=== PATIENT | female | born 1980 | race African-American/Black ===

== ENCOUNTER → 2018-08-30 | Outpatient (CLI) | payer OTHER ==
--- NOTE | 2018-08-30 15:01 | RADIOLOGY REPORT (SQ) ---
EXAM DESCRIPTION: CT FACIAL AREA WITH COMPLETED DATE/TIME: 08/30/2018 12:49 pm REASON FOR STUDY: PERIAPICAL ABSCESS WITH SINUS K04.6 PERIAPICAL ABSCESS WITH SINUS COMPARISON: None. TECHNIQUE: Post contrast images through the facial bones and orbits windowed for bone and soft tissu e. Additional coronal and sagittal reconstructed images reviewed. All images stored on PACS. All CT scanners at this facility use dose modulation, iterative reconstruction, and/or weight based d osing when appropriate to reduce radiation dose to as low as reasonably achievable (ALARA). [facility]: Dose Right [facility]: CareDose [facility]: Dose Right [facility]: Teradose 4D [facility]: BrainMass CONTRAST TYPE AND DOSE: contrast/concentration: Isovue 350.00 mg/ml; Total Contrast Delivered: 75.0 ml; Total Saline Delivered: 55.0 ml RENAL FUNCTION: None required. The patient is less than 50 years old. RADIATION DOSE: . LIMITATIONS: None. FINDINGS: FACIAL BONES: No fracture or bone lesion. ORBITS: Intact. No fracture. Symmetric intact globes and retroorbital soft tissues. PARANASAL SINUSES: Minimal mucous membrane thickening in the floor of the left maxillary sinus. Othe rwise clear. No significant mucosal thickening, mass or fluid. No nasal polyps. Maxillary sinus outl ets are patent. SOFT TISSUES: No mass or edema. No abnormal enhancement. INFERIOR BRAIN: Limited view. No acute findings. OTHER: No other significant finding. IMPRESSION: MINIMAL MUCOUS MEMBRANE THICKENING IN THE FLOOR OF THE LEFT MAXILLARY SINUS. THE SINUSE S ARE OTHERWISE CLEAR. NO OTHER SIGNIFICANT FINDINGS. NO SOFT TISSUE INFLAMMATION OR ABSCESS. TECHNICAL DOCUMENTATION: JOB ID: [id number] Quality ID # [id number]: Final reports with documentation of one or more dose reduction techniques (e.g., Au tomated exposure control, adjustment of the mA and/or kV according to patient size, use of iterative reconstruction technique) 2010 [employer]- All Rights Reserved Reading location - IP/workstation name: [id number]
== END ==
LOC: RAD 12:17
PROVIDERS: ATTEND Physician Assistant
DX: K04.6 Periapical abscess with sinus (principal)
CPT/HCPCS: 70487